=== PATIENT | female | born 1975 | race Two or more races ===

== ENCOUNTER 2022-06-15 16:21 | Emergency (ER) | payer OTHER ==
[~2022-06-15] VITALS: Ht 157.5 cm; Wt 77.3 kg
[2022-06-15 18:38] VITALS: BP 112/66
== END 2022-06-15 19:54 | disposition left against medical advice (07) ==
LOC: EMS 16:32
DX: R06.02 Shortness of breath (principal); Z53.21 Procedure and treatment not carried out due to patient leaving prior to being seen by health care provider

== ENCOUNTER 2023-04-02 17:17 | Emergency (ER) | payer OTHER ==
[~2023-04-02] VITALS: Ht 149.9 cm; Wt 77.3 kg
[2023-04-02 17:56] LABS: BASOPHILS % (AUTO) 0.4 % (0.0-2.0); EOSINOPHILS % (AUTO) 1.9 % (1.0-6.0); HEMATOCRIT 34.2 % (36-46); HEMOGLOBIN 11.3 g/dL (12.0-16.0); LYMPHOCYTES # (AUTO) 1.8 K/uL (1.0-4.8); LYMPHOCYTES % (AUTO) 21.3 % (22.0-44.0); MEAN CORPUSCULAR HEMOGLOBIN 26.7 pg (26.0-34.0); MEAN CORPUSCULAR HGB CONC 33.1 G/dL (31.0-37.0); MEAN CORPUSCULAR VOLUME 81 fL (80-100); MONOCYTES # (AUTO) 0.4 K/uL (0.1-1.0); MONOCYTES % (AUTO) 5.1 % (2.0-9.0); NEUTROPHILS # (AUTO) 5.9 K/uL (1.8-7.7); NEUTROPHILS % (AUTO) 71.3 % (40.0-70.0); PLATELET COUNT (AUTO) 363 K/uL (150-450); RED BLOOD CELL COUNT(AUTO) 4.25 MIL/uL (4.00-5.20); RED CELL DISTRIBUTION WIDTH 15.8 % (11.5-14.5); WHITE BLOOD COUNT (AUTO) 8.3 K/uL (4.5-11.0)
[2023-04-02 18:07] LABS: ANION GAP 8 mmol/L (8-16); CALCIUM, TOTAL 8.7 mg/dL (8.8-10.5); CARBON DIOXIDE 26 mmol/L (22-29); CHLORIDE 103 mmol/L (98-107); CREATININE 0.85 mg/dL (0.60-1.30); GLOMERULAR FILTR. RATE CALC > 60 mL/min (>60); GLUCOSE,RANDOM 161 mg/dL (70-110); POTASSIUM 3.5 mmol/L (3.5-5.1); SODIUM SERUM 137 mmol/L (136-145); UREA NITROGEN, BLOOD 11 mg/dL (7-18)
[2023-04-02 18:08] LABS: B-TYPE NATRIURETIC PEPTIDE 9 pg/mL (0-100)
[2023-04-02 18:15] LABS: ALANINE AMINOTRANSFERASE 24 U/L (12-78); ALBUMIN 3.7 g/dL (3.4-5.0); ALKALINE PHOSPHATASE 75 U/L (46-116); ASPARTATE AMINOTRANSFERASE 17 U/L (15-37); BILIRUBIN,TOTAL 0.1 mg/dL (0.1-1.0); HCG,QUANTITATIVE < 1 mIU/mL (0-6)
[2023-04-02] MEDS ORDERED: LORazepam 1 MG TABLET PO ONE (18:30)
[2023-04-02] MEDS ORDERED: PB/HYOSCY/ATR/SCOP/LIDO/MAALOX 55 ML BOTTLE PO ONE (18:30)
[2023-04-02 18:32] LABS: TROPONIN I-HIGH SENSITIVITY 4 ng/L (<51)
[2023-04-02 20:04] VITALS: BP 122/73; PULSE 92; RESP 20; TEMP 98.2
[2023-04-02] MEDS ORDERED: FAMO20 PO (20:04)
== END 2023-04-02 20:31 | disposition home or self-care (01) ==
LOC: EMS 18:10
DX: K44.9 Diaphragmatic hernia without obstruction or gangrene (principal); R10.13 Epigastric pain; R00.2 Palpitations; I10 Essential (primary) hypertension
CPT/HCPCS: 71045; 80053; 83880; 84484; 84702; 85025; 93005; 99285; 36415-L1; 36415-TC